=== PATIENT | female | born 1950 | race Caucasian/White ===

== ENCOUNTER 2017-01-25 18:11 | Emergency (ER) | payer MEDICARE, BC ==
[2017-01-25] MEDS ORDERED: KETOROLAC TROMETHAMINE 60 MG/2 ML VIAL IM ONE ×2 (18:47→18:48)
[2017-01-25 18:50] LABS: Urine Bilirubin Negative (NEGATIVE); Urine Blood Negative /ul (NEGATIVE); Urine Ketone Negative (NEGATIVE); Urine Nitrite Negative (NEGATIVE); Urine Protein Negative (NEGATIVE); Urine Specific Gravity 1.015 SP.GR. (1.005-1.010); Urine Urobilinogen Normal (NORMAL)
[2017-01-25 18:59] LABS: Urine Appearance Clear; Urine Bacteria 1+; Urine Color Yellow; Urine RBC None Seen /hpf (0-5); Urine WBC None Seen /hpf (0-5)
[2017-01-25 19:00] LABS: Urine Hyaline Cast TRACE /LPF
--- NOTE | 2017-01-25 19:12 | ERNOTE ---
Back Pain ER HPI Date of Service: 01/25/17 Presenting Symptoms: other - R flank pain Time Seen by Provider: 01/25/17 18:28 Source: patient Exam Limitations: no limitations Immunizations: IMMUNIZATION HX Immunizations Up to Date Yes History of Influenza Vaccine No Hx Pneumococcal Vaccination No Allergies/Adverse Reactions: Allergies codeine Allergy (Intermediate, Verified 01/25/17 18:24) Vomiting oxycodone Allergy (Intermediate, Verified 01/25/17 18:25) Vomiting naproxen [From Aleve] Adverse Reaction (Intermediate, Verified 01/25/17 18:25) Other Home Medications: HOME MEDICATIONS Cyclobenzaprine HCl [Flexeril] 10 mg PO TID PRN #30 tab 01/25/17 [Last Taken Unknown] Ibuprofen 800 mg PO TID PRN #30 tablet 01/25/17 [Last Taken Unknown] Narrative: Pt. comes in with c/o R flank pain for 6 hours. Pt. states that it came on suddenly does not radiate, is not accompanied by any associated symptoms, has no alleviating or aggravating factors and was not caused by an injury. Pt. denies any vomiting, fever, SOB or CP. Pt. does state that she has some mild nausea. Pt. denies any prehospital treatment. Review of Systems - Review of Systems Constitutional: Present: no symptoms reported. Absent: recent illness, fever, chills, weakness, fatigue, malaise EYE: Present: no symptoms reported ENT: Present: no symptoms reported Respiratory: Present: no symptoms reported. Absent: shortness of breath, cough , wheezing Cardiology: Present: no symptoms reported. Absent: chest pain, palpitations, edema Gastrointestinal/Abdominal: Present: nausea. Absent: vomiting, diarrhea, abdominal pain Genitourinary: Present: pain - R flank. Absent: dysuria, decreased urinary output Musculoskeletal: Present: back pain - R flank. Absent: muscle pain, neck pain, joint pain Skin: Present: no symptoms reported. Absent: rash, change in color Neurological: Present: no symptoms reported. Absent: headache, dizziness/light- headedness, numbness, tingling All Other Systems: All systems neg except as marked - Patient's Past Medical History Patient History - Cardiac/Respiratory: No pertinent hx Patient History - Surgical Procedures: Cholecystectomy, Tubal Ligation, T & A Patient History - Other: None - Social History Living Situations: home Abuse History: No History of abuse Psych History: No pertinent hx Smoking Status: Former smoker Have you smoked in the past 12 months: No Do you dip or chew tobacco: No Alcohol Use: none Drug Use: none - Immunizations Immunizations Up to Date: Yes Hx Pneumococcal Vaccination: No History of Influenza Vaccine: No Physical Exam - Physical Exam General Appearance: Present: wd/wn, alert, no apparent distress Head Exam: Present: normal inspection, no evidence of injury Eye Exam: Normal inspection: bilateral, PERRL: bilateral, EOMI: bilateral Ears, Nose, Throat: Present: normal ENT inspection, normal pharynx Neck: Present: normal inspection, nontender. Absent: lymphadenopathy (R), lymphadenopathy (L) Respiratory: Present: no respiratory distress, normal breath sounds, no accessory muscle use, chest nontender, lungs clear Cardiovascular/Chest: Present: regular rate, rhythm, no murmur, normal peripheral pulses Back Exam: Present: normal range of motion, no vertebral tenderness, CVA tenderness (R) Extremity Exam: Present: normal inspection, non-tender, normal range of motion, no edema Neurological Exam: Present: alert, oriented, normal mood/affect, no motor/ sensory deficits, conductor orchestra II-XII nml as tested, normal cerebellar test Skin Exam: Present: normal color, warm/dry. Absent: pallor, skin rash ED Progress - Results and Orders Patient's Lab Results:: I have reviewed the patient's lab results. - Vital Signs Patient's Vital Signs:: I have reviewed the patient's vital signs. Vital Signs: Vital Signs 01/25/17 18:18 Temperature 37.3 C Pulse Rate 71 Respiratory 18 Rate Blood Pressure 157/75 O2 Sat by Pulse 96 Oximetry - X-Ray X-Ray #1 X-Ray: lumbosacral Interpretation: Interp. by me X-ray Comments: suboptimal picture but no obvious acute ossious abnormality, Multilevel degenerative disk disease. - Progress/Reassessment Chief Complaint: Back Pain Progress:: Unchanged Departure Clinical Impression: Degenerative disc disease, lumbar Lumbar strain Qualifiers: Encounter type: initial encounter Qualified Code(s): S39.012A - Strain of muscle, fascia and tendon of lower back, initial encounter - Departure Disposition: Home self-care Condition: Good Instructions: Low Back Sprain With Rehab-SportsMed, Degenerative Disk Disease Additional Instructions: Please follow up with primary provider for further follow up in 2-3 days. Prescriptions: Cyclobenzaprine HCl [Flexeril] 10 mg PO TID PRN #30 tab PRN Reason: MUSCLE SPASMS Ibuprofen 800 mg PO TID PRN #30 tablet PRN Reason: Pain
[2017-01-25] MEDS ORDERED: ORPHENADRINE CITRATE 30 MG/ML VIAL IM ONE (19:57)
[2017-01-25] MEDS ORDERED: ORPHENADRINE CITRATE 30 MG/ML VIAL ONE (20:02)
[2017-01-25 21:14] VITALS: BP 142/73
== END 2017-01-25 21:15 | disposition home or self-care (01) ==
LOC: ER 18:11
DX: M51.36 Other intervertebral disc degeneration, lumbar region (principal); S39.012A Strain of muscle, fascia and tendon of lower back, initial encounter; Z87.891 Personal history of nicotine dependence